=== PATIENT | female | born 1990 | race Caucasian/White ===

== ENCOUNTER 2021-01-23 07:01 | Inpatient (IN) | payer OTHER ==
[~2021-01-23] VITALS: Ht 167.6 cm; Wt 118.4 kg
[~2021-01-23 07:01] MED LIST: ZOFRAN4 MG PO; ZOLOFT50 MG PO
[2021-01-23 08:03] LABS: BILIRUBIN NEGATIVE (NEGATIVE); BLOOD NEGATIVE Ery/uL (NEGATIVE); CLARITY CLEAR (CLEAR); COLOR YELLOW (YELLOW); GLUCOSE (U) NORMAL (NORMAL); LEUKOCYTES TRACE Leu/uL (NEGATIVE); NITRITE NEGATIVE (NEGATIVE); PROTEIN NEGATIVE (NEGATIVE); SPECIFIC GRAVITY 1.025 (1.001-1.030); UROBILINOGEN 0.2 mg/dL (0.2-1.0)
[2021-01-23 08:06] LABS: AMPHETAMINES NEGATIVE (NEGATIVE); BARBITURATES NEGATIVE (NEGATIVE); ECSTASY (MDMA) NEGATIVE (NEGATIVE); MARIJUANA (THC) NEGATIVE (NEGATIVE); METHADONE NEGATIVE (NEGATIVE); OPIATES NEGATIVE (NEGATIVE); OXYCODONE NEGATIVE (NEGATIVE)
[2021-01-23 08:14] LABS: BACTERIA 1+; URINARY RBC RARE
[2021-01-23 08:47] LABS: HGB 10.7 g/dl (12.5-16.0); MCH 28.1 pg (25.0-31.0); MCHC 32.4 g/dL (32.0-36.0); MCV 86.6 fL (78.0-100.0); MPV 11.3 fL (6.0-9.5); RBC 3.81 M/uL (4.20-5.40); RDW 12.2 % (11.5-14.0); WBC 10.9 K/uL (4.0-10.5)
[2021-01-25 07:59] LABS: HCT 34.5 % (37.0-47.0); HGB 10.9 g/dl (12.5-16.0); MCH 28.3 pg (25.0-31.0); MCHC 31.6 g/dL (32.0-36.0); MCV 89.6 fL (78.0-100.0); MPV 11.2 fL (6.0-9.5); RBC 3.85 M/uL (4.20-5.40); RDW 12.4 % (11.5-14.0); WBC 12.5 K/uL (4.0-10.5)
== END 2021-01-25 17:38 | disposition home or self-care (01) | DRG 806 ==
LOC: FOB 07:01
PROVIDERS: ADMIT Specialist
PROC: 10E0XZZ Delivery of Products of Conception, External Approach (ICD-10-PCS; principal; 2021-01-24)
PROC: 10907ZC Drainage of Amniotic Fluid, Therapeutic from Products of Conception, Via Natural or Artificial Opening (ICD-10-PCS; 2021-01-24)
PROC: 3E0P7VZ Introduction of Hormone into Female Reproductive, Via Natural or Artificial Opening (ICD-10-PCS; 2021-01-24)
PROC: 10H07YZ Insertion of Other Device into Products of Conception, Via Natural or Artificial Opening (ICD-10-PCS; 2021-01-24)
DX: O99.214 Obesity complicating childbirth (principal); D62 Acute posthemorrhagic anemia; Z37.0 Single live birth; O99.344 Other mental disorders complicating childbirth; F41.9 Anxiety disorder, unspecified; Z20.822 Contact with and (suspected) exposure to COVID-19; Z3A.39 39 weeks gestation of pregnancy; O99.03 Anemia complicating the puerperium; O71.82 Other specified trauma to perineum and vulva; Z88.0 Allergy status to penicillin
CPT/HCPCS: 36415; 80305; 81001; 86850; 86900; 86901; J0595; J2405; J3010; J7120; U0002